=== PATIENT | female | born 1940 | race Caucasian/White ===

== ENCOUNTER 2024-05-06 15:35 | Emergency (ER) | payer MEDICARE, OTHER ==
[~2024-05-06] VITALS: Ht 152.4 cm; Wt 72.6 kg
[2024-05-06] MEDS ORDERED: VALA10002 PO (18:08)
[2024-05-06] MEDS ORDERED: PRED50TA PO (18:08)
[2024-05-06] MEDS ORDERED: ACYCLOVIR 200 MG CAPSULE ONE (18:13)
[2024-05-06] MEDS ORDERED: predniSONE 50 MG TABLET ONE (18:13)
[2024-05-06] MEDS: ACYCLOVIR 400 MG TABLET PO ONE (18:16)
[2024-05-06] MEDS: predniSONE 50 MG TABLET PO ONE (18:16)
[2024-05-06 18:21] VITALS: BP 147/88; TEMP 98.1; O2SAT 98
== END 2024-05-06 18:21 | disposition home or self-care (01) ==
LOC: ER 16:39
DX: B02.9 Zoster without complications (principal); K21.9 Gastro-esophageal reflux disease without esophagitis; Z79.52 Long term (current) use of systemic steroids; Z79.624 Long term (current) use of inhibitors of nucleotide synthesis
CPT/HCPCS: 99283; J7512; A4606; A4663